=== PATIENT | female | born 1930 | race Caucasian/White ===

== ENCOUNTER 2018-12-16 13:46 | Observation (INO) | payer BC, MEDICARE ==
[~2018-12-16] VITALS: Ht 167.6 cm; Wt 72.3 kg
[2018-12-16] MEDS ORDERED: ARIMIDEX1 MG PO (14:07)
[2018-12-16 15:59] LABS: HEMATOCRIT 44.7 % (37.0-47.0); HEMOGLOBIN 14.2 g/dl (12.5-16.0); MEAN CELL VOLUME 98 fl (80.0-100.0); MEAN CORPUSCULAR HEMOGLOBIN 31 pg (27.0-31.0); MEAN CORPUSCULAR HGB CONC 32 g/dl (33.0-37.0); MEAN PLATELET VOLUME 11.7 fl (7.4-10.4); PLATELET COUNT 112 K/mm3 (130-400); RED BLOOD COUNT 4.55 M/mm3 (4.10-5.30); REDCELL DISTRIBUTION WIDTH-CV 16.6 % (11.5-14.5)
[2018-12-16 16:07] LABS: ALANINE AMINOTRANSFERASE 27 U/L (9-52); ALBUMIN 4.2 gm/dL (3.5-5.0); ALKALINE PHOSPHATASE 129 U/L (50-136); ANION GAP 11 mmol/L (7-16); AST,SGOT 199 U/L (15-37); BILIRUBIN,TOTAL 0.6 mg/dL (0.0-1.0); BLOOD UREA NITROGEN 22 mg/dL (7-17); C-REACTIVE PROTEIN 0.6 mg/dL (0.0-0.9); CALCIUM 9.9 mg/dL (8.4-10.2); CARBON DIOXIDE 25 mmol/L (22-30); CHLORIDE 104 mmol/L (98-107); CREATINE KINASE 127 U/L (30-135); CREATININE, serum 1.04 (0.52-1.25); GLUCOSE 101 mg/dL (74-106); LIPASE 89 U/L (23-300); SODIUM 139 mmol/L (137-145); TOTAL PROTEIN 7.1 gm/dL (6.4-8.2)
[2018-12-16 16:13] LABS: PROTHROMBIN TIME 11.5 SECONDS (9.7-12.8)
[2018-12-16 16:15] LABS: COLLECTION METHOD CLEAN CATCH
[2018-12-16 16:15] LABS: PARTIAL THROMBOPLASTIN TIME 26.6 SECONDS (26.0-37.0)
[2018-12-16 16:20] LABS: PH 6 (5-8); SQUAMOUS EPITHELIAL None Seen /hpf; URINE APPEARANCE Clear; URINE BACTERIA None Seen /hpf; URINE BILIRUBIN Negative (NEGATIVE); URINE BLOOD Negative (NEGATIVE); URINE COLOR Yellow; URINE GLUCOSE Negative (NEGATIVE); URINE KETONE Trace (NEGATIVE); URINE LEUKOCYTE ESTERASE Negative (NEGATIVE); URINE NITRATE Negative (NEGATIVE); URINE PROTEIN(semi-quant) Negative (NEGATIVE); URINE RBC 0-2 /hpf; URINE UROBILINOGEN Negative (NEGATIVE)
[2018-12-16 16:21] LABS: TROPONIN-I < 0.012 ng/mL (0.000-0.035)
[2018-12-16 16:32] LABS: LYMPHOCYTE 95 % (20.0-51.0); NEUTROPHILS 5 % (42.0-75.2)
[2018-12-16 16:33] LABS: PLATELET ESTIMATE DECREASED (NORMAL)
[2018-12-16 16:35] LABS: ANISOCYTOSIS 1+
[2018-12-16 16:36] LABS: HELMET CELLS 1+; MICROCYTOSIS 1+; TEAR DROP CELLS 1+
[2018-12-16 19:55] VITALS: BP 147/79; PULSE 94; TEMP 97.9
--- NOTE | 2018-12-16 20:43 | NUR ---
PT ARRIVED FROM ER VIA GURNEY ACCOMPANIED BY . PT HAS LEFT ARM RESTRICTION. PT STILL FEELING WEAK AND ON O2 AT THIS TIME. NO FURTHER NEEDS AT THIS TIME. CALL LIGHT WITHIN REACH.
[2018-12-16 20:50] VITALS: BP 158/81; PULSE 83; TEMP 98.2
[2018-12-17] VITALS (7 sets, daily range): BP systolic 127–160; BP diastolic 61–76; PULSE 68–79; TEMP 97.6–98.6
--- NOTE | 2018-12-17 02:35 | NUR ---
PT HAD C/O HEADACHE, RECEIVED ORDER OF TYLENOL 650 MG PO Q6H, FROM HEATHER BOLANOS. GAVE TYLENOL 650 MG PO FOR HEADACHE RATED AT 6/10 THAT PT DESCRIBED FEELING HUNGRY. ALSO, GAVE APPLESAUCE FOR SNACK WITH [employer]. PT ATE SNACK AND REPOSITIONED PT IN BED. PT FELT BETTER AFTER THAT AND IS NOW SLEEPING/RESTING WITH RESP EVEN AND UNLABORED WITH NO S/S OF PAIN OR DISCOMFORT NOTED. CALL LIGHT WITHIN REACH.
[2018-12-17 06:51] LABS: HEMATOCRIT 41.9 % (37.0-47.0); MEAN CELL VOLUME 99 fl (80.0-100.0); MEAN CORPUSCULAR HEMOGLOBIN 31 pg (27.0-31.0); MEAN CORPUSCULAR HGB CONC 31 g/dl (33.0-37.0); MEAN PLATELET VOLUME 12.2 fl (7.4-10.4); PLATELET COUNT 115 K/mm3 (130-400); RED BLOOD COUNT 4.22 M/mm3 (4.10-5.30); REDCELL DISTRIBUTION WIDTH-CV 16.4 % (11.5-14.5)
[2018-12-17 07:02] LABS: CREATININE, serum 0.97 (0.52-1.25); POTASSIUM 3.8 mmol/L (3.4-5.0)
[2018-12-17 07:42] LABS: LYMPHOCYTE 94 % (20.0-51.0); NEUTROPHILS 5 % (42.0-75.2); PLATELET ESTIMATE DECREASED (NORMAL)
[2018-12-17 08:12] LABS: PATHOLOGY DIFF REVIEW OK +
--- NOTE | 2018-12-17 09:55 | NUR ---
Pt is awake and A/Ox4, resting in bed. She denies pain or discomfort at this time. She is up to the restroom with a stand by assist. Very minimal assist from nurse. IVF are infusing into right hand without difficulty. at bedside. Pt denies any other needs.
--- NOTE | 2018-12-17 10:47 | NUR ---
WALTER met with the patient and patient's , Triston, to discuss discharge plan. The patient recently moved from [place] to [place] with her . She reports that she has been needing assistance with ADLs recently and only has a walking stick. She states that her has been helping her with bathing and using the restroom. The patient's PCP is Dr. Darius Ott and she receives her medications at the [facility]. She reports no difficulties obtaining her meds. The patient does not have advanced directives in EMR, but she states that she does have them completed. The patient's plans to bring a copy of them to the hospital. The patient reports that she would like to return home upon discharge. She states that she would be interested in home health services. WALTER provided the patient with Medicare.gov's list of home health agencies that serve [place]. The patient and her plan to contact their daughter to find out what her preference is. The patient and her were also interested in resources for private duty services. WALTER provided the patient with a list of agencies that provide private duty services and their prices. PT/OT have been ordered. WALTER to continue to follow.
--- NOTE | 2018-12-17 16:54 | NUR ---
Resumed care of pt at this time from Annabelle, pt resting in bed, denies needs, will continue to monitor.
--- NOTE | 2018-12-17 17:31 | NUR ---
Pt doing well, resting in bed eating supper. Family at bedside. IVF to RH. 02 at 1.5 L NC. Denies needs, will give bedside shift report to nightshift nurse who will resume care.
--- NOTE | 2018-12-17 17:43 | NUR ---
The patient's approached WALTER to discuss getting the patient a 4WW with a seat. The patient's and daughter report that they found a walker like that at [facility] and would like to order it. WALTER contacted and faxed the patient's walker order to Kurt at [facility]. Kurt reports that their tamara is already gone for the day and weekend. He states that she will then review and send the patient's order to insurance on Thursday. WALTER then met with the patient, patient's , and daughter to inform. The patient's family was concerned with the patient not having a walker for Thursday, if she were to discharge on Thursday. WALTER discussed the option of renting or buying one from [employer] or [employer] for that day, until they get the 4WW walker from [facility]. The patient's daughter states that she may just go rent or buy one. SW to continue to follow.
--- NOTE | 2018-12-17 20:16 | NUR ---
PT IN BED WITH HOB ELEVATED TO 45 DEGREE ANGLE, HAS HEADACHE 4/10 FEELS UNABLE TO DISCRIBE, TYLENOL GIVEN REQUESTED FOR PAIN. PT HAS NO FURTHER NEEDS AT THIS TIME, CALL LIGHT WITHIN REACH.
--- NOTE | 2018-12-18 02:55 | NUR ---
PT SLEEPING RESTING AT THIS TIME. PT REQUESTED AROUND 2300 TO TURN OFF IV PUMP BECAUSE SHE COULD NOT SLEEP; IT KEPT WAKING HER UP. TURNED OFF REQUESTED FOR A FEW HOURS. PT'S RESP EVEN AND UNLABORED AND NO S/S OF PAIN OR DISCOMFORT NOTED. CALL LIGHT WITHIN REACH.
[2018-12-18 04:30] VITALS: BP 121/64; PULSE 82; TEMP 98.2
--- NOTE | 2018-12-18 04:35 | NUR ---
PT SLEEPING/RESTING, REFUSES IV FLUIDS, TAKEN IV TUBING OFF IV. PT ALSO HAS TAKEN OFF NASAL CANULA. PT'S O2 SATs AT 85% ON ROOM AIR. TRIED TO PUT NASAL CANULA ON AND PT REFUSES TO PUT IT ON. PT STATED, "I DO NOT WANT THAT THING ON. IT HAS BEEN ON THE FLOOR." ADVISED OF O2 SATs AND PT STATED, "I DO NOT CARE, JUST LEAVE ME ALONE. I JUST WANT TO SLEEP. I AM GETTING OUT OF HERE TODAY." CALLED RT TO GET NEW NASAL CANULA FOR PT. PT IN BED RESTING. RT CAME UP AND IS PUTTING NEW NASAL CANULA ON PT. CALL LIGHT WITHIN REACH.
--- NOTE | 2018-12-18 04:39 | NUR ---
RT TRIED TO PUT NASAL CANULA ON PT, BUT PT REFUSES TO PUT IT ON FOR RT. RT LEFT NEXT TO PT IN BED AND PT IS AWARE IT IS THERE FOR HER. CALL LIGHT WITHIN REACH.
--- NOTE | 2018-12-18 04:44 | NUR ---
CALLED HEATHER BOLANOS IN REFERENCE TO O2 SATS 85% ON ROOM AIR AND THAT PT IS REFUSING TO WEAR OXYGEN (NASAL CANULA). HEATHER BOLANOS ADVISED THAT IT IS OKAY IF SHE REFUSES WE CANNOT MAKE HER WEAR IT. ALSO, ADVISED THAT PT IS REFUSING IV FLUIDS RUNNING.
--- NOTE | 2018-12-18 08:20 | NUR ---
Pt alert and oriented, sitting in chair dressed. Pt asking when she can be discharged. Pt refusing to wear oxygen and denies shortness of breath. Breath sounds clear. Completed morning assessment. Pt has refused to have fluids running or get labs done. Pt is at bedside and concerned about oxygen at home, pt denies needing it and denies wanting it at home. Will follow up with doctor about discharge. Will continue to monitor, call light in reach.
[2018-12-18 08:43] VITALS: BP 136/70; PULSE 82; TEMP 98.1
--- NOTE | 2018-12-18 11:16 | NUR ---
Visited, listened, prayed, and provided spritual care to the patient.
--- NOTE | 2018-12-18 13:10 | NUR ---
Paperwork given, all questions asked and answered. INT to RH removed, catheter tip intact, no redness or swelling noted. Pt had all belongings in her posession. Pt escorted out via wheelchair.
--- NOTE | 2018-12-20 15:57 | NUR ---
The patient discharged back home with her on Thursday, 12/18. The patient's contacted AWLTER today, 12/20, and informed WALTER that his would like home health services through [facility]. WALTER contacted and faxed a referral to Lizz at [facility]. Lizz reports that she needs to get approval from the patient's insurance and that her insurance, [employer], can take awhile to get approved. Lizz reports that she will contact WALTER as soon as she does.
--- NOTE | 2018-12-21 16:31 | NUR ---
WALTER contacted Arthur at [facility] to inquire about referral. Arthur reports that the patient's insurance only approves for actual physical and occupational therapists, not physical or occupational therapy assistants. Arthur reports that they only have assistants. WALTER then contacted Paolo at [facility]. Paolo reports that they take the patient insurance. WALTER then contacted the patient's to update and inform. The patient's reports he would be agreeable to [facility]. WALTER then faxed the patient's referral to Paolo at [facility]. Paolo reports that they would be able to accept the patient. The patient's also informed WALTER that they did spinning and winding supervisor the patient's walker from [facility] [place] [employer].
== END 2018-12-18 13:15 | disposition home or self-care (01) ==
LOC: COL.ER 13:46 → MEDICAL 18:14
PROVIDERS: Emergency Medicine; Nurse Practitioner; ADMIT Student in an Organized Health Care Education/Training Program
DX: R53.1 Weakness (principal); D72.829 Elevated white blood cell count, unspecified; Z85.3 Personal history of malignant neoplasm of breast; Z90.13 Acquired absence of bilateral breasts and nipples; Z87.891 Personal history of nicotine dependence; Z92.21 Personal history of antineoplastic chemotherapy
CPT/HCPCS: G0378; J7030; Q9967